=== PATIENT | female | born 1950 | race Caucasian/White ===

== ENCOUNTER 2017-03-10 00:34 | Emergency (ER) | payer MEDICAID ==
[~2017-03-10] VITALS: Ht 170.2 cm; Wt 95.0 kg
[2017-03-10 01:36] LABS: BASOPHILS % 0.8 % (0.0-2.0); EOSINOPHILS % 3.7 % (0.0-5.0); HEMATOCRIT. 37.4 % (36.0-48.0); LYMPHOCYTES % 38.8 % (20.0-50.0); MEAN CORPUSCULAR HEMOGLOBIN 27.1 pg (28.0-32.0); MEAN CORPUSCULAR HGB CONC 32.1 g/dL (31.0-37.0); MEAN CORPUSCULAR VOLUME 84.5 fL (81.0-99.0); MEAN PLATELET VOLUME 8.5 fl (7.4-10.4); MONOCYTES % 9.3 % (2.0-8.0); NEUTROPHILS % 47.4 % (40.0-76.0); PLATELET 187 x1000/uL (130-400); RED BLOOD CELL COUNT 4.43 mill/uL (4.2-5.4); RED CELL DISTRIBUTION WIDTH 12.6 % (11.6-14.6); WHITE BLOOD COUNT 6.3 x1000/uL (4.5-11.0)
[2017-03-10] MEDS ORDERED: ONDANSETRON HCL 4MG/2ML VIAL IV ONE (01:45)
[2017-03-10] MEDS ORDERED: MORPHINE SULFATE 4 MG/ML CPJ (NOT FOR IM USE) IV ONE (01:45)
[2017-03-10 01:46] LABS: D-DIMER 0.51 mg/L FEU (<0.50); PARTIAL THROMBOPLASTIN TIME 28.5 sec (24.0-34.0); PROTHROMBIN TIME 10.5 sec
[2017-03-10 01:53] LABS: ALANINE AMINOTRANSFERASE 24 IU/L (13-61); ALBUMIN 3.9 g/dL (3.4-5.0); ANION GAP 10; CALCIUM 9.3 mg/dL (8.5-10.1); CARBON DIOXIDE 29 mEq/L (21-32); CHLORIDE 108 mEq/L (98-107); INDEX HEMOLYSI 1 (1-3); INDEX ICTERIC 1 (1-4); INDEX LIPEMIC 1 (1-3); LIPASE 249 IU/L (73-393); TROPONIN I < 0.02 ng/mL (0.00-0.04); UREA NITROGEN BLOOD 23 mg/dL (7-21); eGFR > 60 mL/min (>60)
[2017-03-10 03:30] VITALS: BP 138/67
== END 2017-03-10 03:35 | disposition home or self-care (01) ==
LOC: ER 00:35
DX: R07.89 Other chest pain (principal); R10.10 Upper abdominal pain, unspecified; I11.9 Hypertensive heart disease without heart failure
CPT/HCPCS: 36415; 71010; 80053; 83690; 84484; 85025; 85379; 85610; 85730; 93005; 96374; 96375; 99285; J2270; J2405; Z7610

== ENCOUNTER 2018-09-30 17:57 | Emergency (ER) | payer MEDICAID ==
[~2018-09-30] VITALS: Ht 160 cm; Wt 95.5 kg
[2018-09-30] MEDS ORDERED: ENALAPRIL 2.5MG/2ML VIAL 2ML IV ONE (23:15)
[2018-09-30 23:58] LABS: BASOPHILS % 0.6 % (0.0-2.0); EOSINOPHILS % 3.1 % (0.0-5.0); HEMOGLOBIN. 13.7 g/dL (12.0-16.0); LYMPHOCYTES % 43.8 % (20.0-50.0); MEAN CORPUSCULAR HEMOGLOBIN 28.4 pg (28.0-32.0); MEAN CORPUSCULAR VOLUME 87.4 fL (81.0-99.0); MEAN PLATELET VOLUME 7.5 fl (7.4-10.4); MONOCYTES % 7.5 % (2.0-8.0); PLATELET 238 x1000/uL (130-400); RED BLOOD CELL COUNT 4.81 mill/uL (4.2-5.4); RED CELL DISTRIBUTION WIDTH 13.3 % (11.6-14.6)
[2018-10-01 00:09] LABS: CHLORIDE 106 mEq/L (98-107)
[2018-10-01 02:53] VITALS: BP 158/85
== END 2018-10-01 02:59 | disposition home or self-care (01) ==
LOC: ER 17:57
DX: I10 Essential (primary) hypertension (principal); Z91.19 Patient's noncompliance with other medical treatment and regimen
CPT/HCPCS: 36415; 70450; 71045; 80053; 83880; 84484; 85025; 93005; 93970; 96374; 99285; J3490

== ENCOUNTER 2021-04-05 00:33 | Inpatient (IN) | payer MEDICARE, MEDICAID ==
[~2021-04-05] VITALS: Ht 162.6 cm; Wt 104.8 kg
[2021-04-05] MEDS ORDERED: SODIUM CHLORIDE 0.9% 1,000 ML IV ONE (01:00)
[2021-04-05 01:43] LABS: BASOPHILS % 0.6 % (0.0-2.0); EOSINOPHILS % 2.3 % (0.0-5.0); HEMATOCRIT. 37.9 % (36.0-48.0); HEMOGLOBIN. 12.1 g/dL (12.0-16.0); LYMPHOCYTES % 39.1 % (20.0-50.0); MEAN CORPUSCULAR HEMOGLOBIN 26.8 pg (28.0-32.0); MEAN CORPUSCULAR VOLUME 84.2 fL (81.0-99.0); MEAN PLATELET VOLUME 8.1 fl (7.4-10.4); MONOCYTES % 9.6 % (2.0-8.0); NEUTROPHILS % 48.4 % (40.0-76.0); PLATELET 233 x1000/uL (130-400); RED BLOOD CELL COUNT 4.51 mill/uL (4.2-5.4); RED CELL DISTRIBUTION WIDTH 12.8 % (11.6-14.6)
[2021-04-05 01:43] LABS: BG BASE EXCESS 1.9 mmol/L (-2.0-2.0); BG CARBOXYHEMOGLOBIN 0.8 % (0.5-1.5); BG DEOXYHEMOGLOBIN 3.3 % (0.0-5.0); BG FRACTION INSPIRED OXYGEN 21; BG HCO3 ACT 26.8 mmol/L (22.0-26.0); BG METHEMOGLOBIN 0.2 % (0.0-1.5); BG OXYGEN SATURATION 96.7 % (92.0-98.5); BG OXYHEMOGLOBIN 95.7 % (94.0-97.0); BG PCO2 42.9 mmHg (35.0-45.0); BG PH 7.413 (7.350-7.450); BG PO2 87.2 mmHg (75.0-100.0); BG SAMPLE SITE RIGHT BRACHIAL; BG TOTAL HEMOGLOBIN 12.7 g/dL (12.0-18.0); BG VENT MODE ROOM AIR
[2021-04-05 01:46] LABS: CHLORIDE 109 mEq/L (98-107)
[2021-04-05 01:48] LABS: PROTHROMBIN TIME 10.7 sec (9.6-11.0)
[2021-04-05 01:50] LABS: ETHANOL BLOOD < 10 mg/dL
[2021-04-05 02:17] LABS: CLARITY URINE CLEAR (CLEAR); COLOR URINE YELLOW (YELLOW); KETONES URINE NEGATIVE (NEGATIVE); LEUKOCYTE ESTERASE URINE 1+ (NEGATIVE); NITRITE URINE NEGATIVE (NEGATIVE); OCCULT BLOOD URINE NEGATIVE (NEGATIVE); PROTEIN URINE NEGATIVE (NEGATIVE); SPECIFIC GRAVITY URINE 1.019 (1.005-1.030)
[2021-04-05 02:24] LABS: *AMPHETAMINES SCREEN URINE NEGATIVE (NEGATIVE); *BARBITURATES SCREEN URINE NEGATIVE (NEGATIVE); *BENZODIAZEPINES SCREEN URINE NEGATIVE (NEGATIVE); *COCAINE SCREEN URINE NEGATIVE (NEGATIVE)
[2021-04-05 02:25] LABS: CANNABINOID URINE SCREEN NEGATIVE (NEGATIVE); METHADONE URINE SCREEN NEGATIVE (NEGATIVE); OPIATES URINE SCREEN NEGATIVE (NEGATIVE); PHENCYCLIDINE URINE SCREEN NEGATIVE (NEGATIVE)
[2021-04-05] MEDS ORDERED: CEFTRIAXONE 1 G PREMIX 50 ML IV SCH (03:15)
[2021-04-05] MEDS ORDERED: IPRATROPIUM/ALBUTEROL 0.5-3(2.5)MG/3ML NEB NEB PRN (07:45)
[2021-04-05] MEDS ORDERED: ZOLPIDEM TARTRATE 5MG TABLET PO PRN (07:45)
[2021-04-05] MEDS ORDERED: GUAIFENESIN 200MG/10ML SUGAR FREE UDC PO PRN (07:45)
[2021-04-05] MEDS ORDERED: ONDANSETRON HCL 4MG/2ML INJ IV PRN (07:45)
[2021-04-05] MEDS ORDERED: NITROGLYCERIN 0.4MG TABLET SL SL PRN (07:45)
[2021-04-05] MEDS ORDERED: DOCUSATE SODIUM 100MG CAPSULE PO PRN (07:45)
[2021-04-05] MEDS ORDERED: MAGNESIUM/ALUMINUM HYDROXIDE/SIMETHICONE 30ML UDC PO PRN (07:45)
[2021-04-05] MEDS ORDERED: ACETAMINOPHEN 325MG TABLET PO PRN (07:45)
[2021-04-05] MEDS ORDERED: CLONIDINE 0.1MG TABLET PO PRN (07:45)
[2021-04-05 08:10] LABS: T4 FREE 1.39 ng/dL (0.76-1.46)
[2021-04-05 08:39] LABS: VITAMIN B12 SERUM 744 pg/mL (211-911)
[2021-04-05 09:03] LABS: FOLIC ACID (FOLATE) SERUM > 20.00 ng/mL (>5.38)
[2021-04-05] MEDS: LEVOFLOXACIN 500MG PREMIX 100 ML IV SCH (09:20)
[2021-04-05 12:00] VITALS: BP 129/84
[2021-04-05] MEDS: ASPIRIN 325MG EC TABLET PO SCH (13:53)
[2021-04-05] MEDS: CHOLECALCIFEROL (D3) 1000 UNIT TABLET PO SCH (13:53)
[2021-04-05] MEDS: ASCORBIC ACID 500 MG TABLET PO SCH ×2 (13:53→20:40)
[2021-04-05] MEDS: FAMOTIDINE 20MG TABLET PO SCH ×2 (13:54→20:40)
[2021-04-05] MEDS: ZINC SULFATE 220 MG ( 50 ) CAPSULE PO SCH (13:54)
[2021-04-05] MEDS: ENOXAPARIN 40MG/0.4ML SYR SUBCUT SCH (13:55)
[2021-04-05 16:00] VITALS: BP_SYST 135; BP_SYST 141; BP_DIAS 50; BP_DIAS 80
[2021-04-05 16:54] LABS: CREATINE KINASE 95 IU/L (26-192)
[2021-04-05 16:55] LABS: CREATINE KINASE MB FRACTION < 1.0 ng/mL (0.5-3.6)
[2021-04-05 17:22] VITALS: BP 138/64
[2021-04-05 20:00] VITALS: BP 143/61
[2021-04-06] VITALS: BP 148/80
[2021-04-06 00:33] LABS: CREATINE KINASE 95 IU/L (26-192)
[2021-04-06 00:36] LABS: CREATINE KINASE MB FRACTION < 1.0 ng/mL (0.5-3.6)
[2021-04-06 04:00] VITALS: BP 148/85
[2021-04-06] MEDS: ACETAMINOPHEN 325MG TABLET PO PRN ×3 (05:37→23:44)
[2021-04-06] MEDS ORDERED: CEFTRIAXONE 1 G PREMIX 50 ML IV SCH (06:00)
[2021-04-06] MEDS: CEFTRIAXONE 1,000 MG in DEXTROSE 5% WATER 50 ML IV SCH (06:15)
[2021-04-06] MEDS: LEVOFLOXACIN 500MG PREMIX 100 ML IV SCH (08:00)
[2021-04-06] MEDS: FAMOTIDINE 20MG TABLET PO SCH ×2 (10:42→21:13)
[2021-04-06] MEDS: ZINC SULFATE 220 MG ( 50 ) CAPSULE PO SCH (10:43)
[2021-04-06] MEDS: CHOLECALCIFEROL (D3) 1000 UNIT TABLET PO SCH (10:43)
[2021-04-06] MEDS: ASPIRIN 325MG EC TABLET PO SCH (10:43)
[2021-04-06] MEDS: ENOXAPARIN 40MG/0.4ML SYR SUBCUT SCH (10:43)
[2021-04-06] MEDS: ASCORBIC ACID 500 MG TABLET PO SCH ×2 (10:43→21:13)
[2021-04-06] MEDS ORDERED: LIDOCAINE HCL 1% 20ML VIAL (Pyxis) INJ ONE (13:56)
[2021-04-06 16:32] VITALS: BP 150/58
[2021-04-06 20:00] VITALS: BP 153/73
[2021-04-06 21:32] LABS: BASOPHILS % 0.4 % (0.0-2.0); EOSINOPHILS % 2.3 % (0.0-5.0); HEMATOCRIT. 35.4 % (36.0-48.0); HEMOGLOBIN. 11.8 g/dL (12.0-16.0); MEAN CORPUSCULAR HEMOGLOBIN 27.8 pg (28.0-32.0); MEAN CORPUSCULAR VOLUME 83.6 fL (81.0-99.0); MEAN PLATELET VOLUME 8.4 fl (7.4-10.4); MONOCYTES % 12.8 % (2.0-8.0); NEUTROPHILS % 42.5 % (40.0-76.0); PLATELET 206 x1000/uL (130-400); RED BLOOD CELL COUNT 4.23 mill/uL (4.2-5.4); RED CELL DISTRIBUTION WIDTH 12.4 % (11.6-14.6)
[2021-04-06 21:33] LABS: CHLORIDE 108 mEq/L (98-107)
[2021-04-06 21:40] LABS: PHOSPHORUS 3.9 mg/dL (2.5-4.9)
[2021-04-07] VITALS: BP 147/54
[2021-04-07 04:00] VITALS: BP 160/60
[2021-04-07] MEDS: CEFTRIAXONE 1,000 MG in DEXTROSE 5% WATER 50 ML IV SCH (04:19)
[2021-04-07 08:00] VITALS: BP_SYST 150; BP_SYST 164; BP_DIAS 67; BP_DIAS 75
[2021-04-07] MEDS: FAMOTIDINE 20MG TABLET PO SCH ×2 (08:23→21:09)
[2021-04-07] MEDS: CHOLECALCIFEROL (D3) 1000 UNIT TABLET PO SCH (08:23)
[2021-04-07] MEDS: ZINC SULFATE 220 MG ( 50 ) CAPSULE PO SCH (08:23)
[2021-04-07] MEDS: ASCORBIC ACID 500 MG TABLET PO SCH ×2 (08:23→21:09)
[2021-04-07] MEDS: ASPIRIN 325MG EC TABLET PO SCH (08:23)
[2021-04-07] MEDS: ENOXAPARIN 30MG/0.3ML SYR SUBCUT SCH ×2 (08:24→21:09)
[2021-04-07 12:00] VITALS: BP 153/59
[2021-04-07] MEDS: LEVOFLOXACIN 500MG TABLET PO SCH (12:22)
[2021-04-07] MEDS: KETOROLAC 15MG/ML VIAL IV PRN ×2 (12:31→21:07)
[2021-04-07 16:00] VITALS: BP 138/82
[2021-04-07 20:00] VITALS: BP 145/62
[2021-04-07] MEDS: ACETAMINOPHEN 325MG TABLET PO PRN (21:08)
[2021-04-08] VITALS: BP 132/54
[2021-04-08] MEDS: CEFTRIAXONE 1,000 MG in DEXTROSE 5% WATER 50 ML IV SCH (03:42)
[2021-04-08] MEDS: ACETAMINOPHEN 325MG TABLET PO PRN (03:51)
[2021-04-08] MEDS: KETOROLAC 15MG/ML VIAL IV PRN (03:52)
[2021-04-08 04:00] VITALS: BP 142/65
[2021-04-08 08:00] VITALS: BP 148/69
[2021-04-08] MEDS: ASPIRIN 325MG EC TABLET PO SCH (10:27)
[2021-04-08] MEDS: FAMOTIDINE 20MG TABLET PO SCH (10:27)
[2021-04-08] MEDS: LEVOFLOXACIN 500MG TABLET PO SCH (10:27)
[2021-04-08] MEDS: ZINC SULFATE 220 MG ( 50 ) CAPSULE PO SCH (10:27)
[2021-04-08] MEDS: CHOLECALCIFEROL (D3) 1000 UNIT TABLET PO SCH (10:27)
[2021-04-08] MEDS: ASCORBIC ACID 500 MG TABLET PO SCH (10:27)
[2021-04-08] MEDS: ENOXAPARIN 30MG/0.3ML SYR SUBCUT SCH (11:08)
[2021-04-08 12:00] VITALS: BP 133/65
[2021-04-08 12:50] VITALS: BP 133/65
[2021-04-09] MEDS ORDERED: AMLODIPINE (13:38)
[2021-04-09] MEDS ORDERED: NITROFURANTOIN (13:38)
[2021-04-09] MEDS ORDERED: TRAZODONE (13:38)
[2021-04-09] MEDS ORDERED: PANT20TA17 MT (18:53)
== END 2021-04-08 14:36 | disposition home health service (06) | DRG 720 ==
LOC: ER 00:33 → 8WST 04:10 → ENRESERV 07:36 → SUPCPDRO 07:37
PROVIDERS: ADMIT Internal Medicine; ATTEND Internal Medicine
PROC: 02HV33Z Insertion of Infusion Device into Superior Vena Cava, Percutaneous Approach (ICD-10-PCS; principal; 2021-04-06)
PROC: B548ZZA Ultrasonography of Superior Vena Cava, Guidance (ICD-10-PCS; 2021-04-06)
PROC: B5181ZA Fluoroscopy of Superior Vena Cava using Low Osmolar Contrast, Guidance (ICD-10-PCS; 2021-04-06)
DX: A41.9 Sepsis, unspecified organism (principal); G92 Toxic encephalopathy; E72.20 Disorder of urea cycle metabolism, unspecified; N39.0 Urinary tract infection, site not specified; I10 Essential (primary) hypertension; Z79.899 Other long term (current) drug therapy; Z20.822 Contact with and (suspected) exposure to COVID-19
CPT/HCPCS: 36415; 36573; 36600; 70551; 71045; 80053; 80061; 80305; 80307; 80320; 80329; 81003; 82140; 82375; 82550; 82553; 82607; 82746; 82805; 83036; 83540; 83550; 83605; 83735; 84100; 84439; 84443; 84484; 85025; 87426; 93005; 93306; 93970; 97162; 97166; 99291; C1725; C1769; C1893; J0696; J1650; J1885; J1956; J3490; J7030; J7060; G0480

== ENCOUNTER 2021-04-09 13:34 | Emergency (ER) | payer MEDICARE, MEDICAID ==
[~2021-04-09] VITALS: Ht 167.6 cm; Wt 90.0 kg
[2021-04-09] MEDS ORDERED: TRAZODONE (13:38)
[2021-04-09] MEDS ORDERED: AMLODIPINE (13:38)
[2021-04-09] MEDS ORDERED: NITROFURANTOIN (13:38)
[2021-04-09] MEDS ORDERED: LIDOCAINE HCL/PF 1% 2ML VIAL ONE (14:16)
[2021-04-09] MEDS ORDERED: ASPIRIN 81MG TABLET PO ONE (14:30)
[2021-04-09 15:15] LABS: BG BASE EXCESS 2.5 mmol/L (-2.0-2.0); BG CARBOXYHEMOGLOBIN 0.7 % (0.5-1.5); BG DEOXYHEMOGLOBIN 5.2 % (0.0-5.0); BG FRACTION INSPIRED OXYGEN 21; BG HCO3 ACT 26.8 mmol/L (22.0-26.0); BG METHEMOGLOBIN 0.4 % (0.0-1.5); BG OXYGEN SATURATION 94.7 % (92.0-98.5); BG OXYHEMOGLOBIN 93.7 % (94.0-97.0); BG PCO2 40.6 mmHg (35.0-45.0); BG PH 7.438 (7.350-7.450); BG SAMPLE SITE RIGHT BRACHIAL; BG TOTAL HEMOGLOBIN 13.4 g/dL (12.0-18.0); BG VENT MODE ROOM AIR
[2021-04-09 15:21] LABS: CHLORIDE 104 mEq/L (98-107)
[2021-04-09 15:25] LABS: D-DIMER 0.64 mg/L FEU (<0.50); PARTIAL THROMBOPLASTIN TIME 30.2 sec (23.4-31.0); PROTHROMBIN TIME 10.5 sec (9.6-11.0)
[2021-04-09 15:26] LABS: BASOPHILS % 0.6 % (0.0-2.0); EOSINOPHILS % 2.6 % (0.0-5.0); HEMATOCRIT. 37.1 % (36.0-48.0); HEMOGLOBIN. 12.5 g/dL (12.0-16.0); LYMPHOCYTES % 42.8 % (20.0-50.0); MEAN CORPUSCULAR VOLUME 83.3 fL (81.0-99.0); MEAN PLATELET VOLUME 8.5 fl (7.4-10.4); PLATELET 209 x1000/uL (130-400); RED BLOOD CELL COUNT 4.45 mill/uL (4.2-5.4); RED CELL DISTRIBUTION WIDTH 12.8 % (11.6-14.6)
[2021-04-09] MEDS ORDERED: MAGNESIUM/ALUMINUM HYDROXIDE/SIMETHICONE 30ML UDC PO ONE (17:30)
[2021-04-09] MEDS ORDERED: VISCOUS LIDOCAINE 2% 15 ML UDC PO ONE (17:30)
[2021-04-09 18:31] VITALS: BP 158/90
[2021-04-09] MEDS ORDERED: PANT20TA17 MT (18:53)
== END 2021-04-09 19:25 | disposition home or self-care (01) ==
LOC: ER 13:34
DX: R07.89 Other chest pain (principal); K29.70 Gastritis, unspecified, without bleeding; I10 Essential (primary) hypertension
CPT/HCPCS: 36415; 36600; 71045; 80053; 82140; 82375; 82805; 83880; 84484; 85025; 85379; 85610; 85730; 93005; 99285; J3490